=== PATIENT | female | born 1985 | race African-American/Black ===

== ENCOUNTER 2017-09-10 19:15 | Emergency (ER) | payer BC ==
[~2017-09-10] VITALS: Ht 170.2 cm; Wt 120.0 kg
[2017-09-10] MEDS ORDERED: LORAZEPAM 0.5MG TABLET PO ONE (21:30)
[2017-09-10 23:50] VITALS: BP 140/93
== END 2017-09-11 03:12 | disposition home or self-care (01) ==
LOC: ER 19:34
DX: F41.9 Anxiety disorder, unspecified (principal); R05 Cough; F32.9 Major depressive disorder, single episode, unspecified; K21.9 Gastro-esophageal reflux disease without esophagitis
CPT/HCPCS: 71045; 93005; 99284

== ENCOUNTER → 2024-05-07 | Outpatient (CLI) | payer BC | END | disposition home or self-care (01) | LOC: US 07:41 | PROVIDERS: ATTEND Obstetrics & Gynecology | DX: T83.32XA Displacement of intrauterine contraceptive device, initial encounter (principal); N85.8 Other specified noninflammatory disorders of uterus; X58.XXXA Exposure to other specified factors, initial encounter | CPT/HCPCS: 76830; 76856 ==

== ENCOUNTER → 2024-05-07 | Outpatient (CLI) | payer BC ==
[2024-05-07 09:40] LABS: CHLORIDE 108 mEq/L (98-107); POTASSIUM 3.7 mEq/L (3.5-5.1); SODIUM 139 mEq/L (136-145)
[2024-05-07 09:41] LABS: CALCIUM 9.2 mg/dL (8.7-10.4); CARBON DIOXIDE 25 mEq/L (21-32)
[2024-05-07 09:46] LABS: CREATININE 0.8 mg/dL (0.6-1.0); GLUCOSE 102 mg/dL (70-105)
[2024-05-07 09:47] LABS: LDL CHOLESTEROL 92 mg/dL (5-100); TRIGLYCERIDE 70 mg/dL (0-150); UREA NITROGEN BLOOD 12 mg/dL (9-23)
[2024-05-07 09:48] LABS: ALANINE AMINOTRANSFERASE 9 IU/L (10-49); ALBUMIN 4.2 g/dL (3.2-4.8); ASPARTATE AMINOTRANSFERASE 14 IU/L (<34); CHOLESTEROL 157 mg/dL (<200)
[2024-05-07 09:49] LABS: BILIRUBIN TOTAL 0.6 mg/dL (0.1-1.0); HDL CHOLESTEROL 48 mg/dL (>65); PROTEIN TOTAL 7.4 g/dL (6.0-8.3)
[2024-05-07 09:51] LABS: T4 FREE 1.18 ng/dL (0.89-1.76); THYROID STIMULATING HORMONE 1.15 uIU/mL (0.55-4.78)
== END | disposition home or self-care (01) ==
LOC: LAB 07:48
PROVIDERS: ATTEND Internal Medicine
DX: I10 Essential (primary) hypertension (principal); E03.9 Hypothyroidism, unspecified; D64.9 Anemia, unspecified; E11.9 Type 2 diabetes mellitus without complications; E55.9 Vitamin D deficiency, unspecified
CPT/HCPCS: 36415; 80053; 80061; 82306; 83036; 84439; 84443

== ENCOUNTER → 2024-12-03 | Outpatient (CLI) | payer BC | END | disposition home or self-care (01) | LOC: CARD 06:40 | PROVIDERS: ATTEND Internal Medicine | DX: I35.8 Other nonrheumatic aortic valve disorders (principal); R00.2 Palpitations; R07.9 Chest pain, unspecified | CPT/HCPCS: 93306 ==

== ENCOUNTER → 2024-12-14 | Outpatient (CLI) | payer BC ==
[2024-12-14 09:15] LABS: BASOPHILS % 0.8 % (0.0-2.0); EOSINOPHILS % 1.1 % (0.0-5.0); HEMATOCRIT. 35.0 % (36.0-48.0); HEMOGLOBIN. 11.8 g/dL (12.0-16.0); LYMPHOCYTES % 50.3 % (20.0-50.0); MEAN PLATELET VOLUME 7.6 fl (7.4-10.4); MONOCYTES % 8.4 % (2.0-8.0); NEUTROPHILS % 39.4 % (40.0-76.0); PLATELET 261 x1000/uL (130-400); RED BLOOD CELL COUNT 3.95 mill/uL (4.2-5.4); RED CELL DISTRIBUTION WIDTH 13.2 % (11.6-14.6)
[2024-12-14 09:32] LABS: CREATININE 1.0 mg/dL (0.6-1.0); TRIGLYCERIDE 50 mg/dL (0-150); UREA NITROGEN BLOOD 7 mg/dL (9-23)
[2024-12-14 09:33] LABS: LDL CHOLESTEROL 82 mg/dL (5-100)
[2024-12-14 09:34] LABS: ASPARTATE AMINOTRANSFERASE 16 IU/L (<34); BILIRUBIN TOTAL 0.9 mg/dL (0.1-1.0); PROTEIN TOTAL 7.3 g/dL (6.0-8.3)
[2024-12-14 09:35] LABS: T4 FREE 1.18 ng/dL (0.89-1.76)
[2024-12-14 09:38] LABS: VITAMIN B12 SERUM > 2000 pg/mL (211-911)
== END | disposition home or self-care (01) ==
LOC: CCL 05:07
PROVIDERS: ATTEND Internal Medicine
DX: I10 Essential (primary) hypertension (principal); E11.9 Type 2 diabetes mellitus without complications; E03.9 Hypothyroidism, unspecified; E78.5 Hyperlipidemia, unspecified; E55.9 Vitamin D deficiency, unspecified
CPT/HCPCS: 36415; 80053; 80061; 82306; 82607; 82962; 83036; 84439; 84443; 85025

== ENCOUNTER 2024-12-22 15:55 | Emergency (ER) | payer BC ==
[~2024-12-22] VITALS: Ht 170.2 cm; Wt 102.5 kg
[2024-12-22 16:18] VITALS: TEMP 36.8; O2SAT 97
[2024-12-22 22:40] VITALS: BP 140/85; PULSE 70; RESP 20; O2SAT 100
== END 2024-12-22 22:43 | disposition home or self-care (01) ==
LOC: ER 15:55
DX: S83.91XA Sprain of unspecified site of right knee, initial encounter (principal); F41.9 Anxiety disorder, unspecified; F32.A Depression, unspecified; Z98.890 Other specified postprocedural states; X50.9XXA Other and unspecified overexertion or strenuous movements or postures, initial encounter; Y93.89 Activity, other specified; Y92.89 Other specified places as the place of occurrence of the external cause; Y99.8 Other external cause status
CPT/HCPCS: 29505; 73562; 99283

== ENCOUNTER → 2025-01-24 | Outpatient (CLI) | payer BC ==
[~2025-01-24] MED LIST: IOHEXOL-350 100 ML BOTTLE ONE; METO-396 PO
== END | disposition home or self-care (01) ==
LOC: CT 06:11
PROVIDERS: ATTEND Internal Medicine
DX: Z13.6 Encounter for screening for cardiovascular disorders (principal); R00.2 Palpitations
CPT/HCPCS: 75571; Q9967

== ENCOUNTER → 2025-05-14 | Outpatient (CLI) | payer BC ==
[~2025-05-14] MED LIST changes: -IOHEXOL-350 100 ML BOTTLE ONE
[2025-05-14 08:15] LABS: BASOPHILS % 0.9 % (0.0-2.0); EOSINOPHILS % 1.5 % (0.0-5.0); HEMATOCRIT. 36.6 % (36.0-48.0); HEMOGLOBIN. 12.0 g/dL (12.0-16.0); LYMPHOCYTES % 40.2 % (20.0-50.0); MEAN PLATELET VOLUME 7.4 fl (7.4-10.4); MONOCYTES % 7.1 % (2.0-8.0); NEUTROPHILS % 50.3 % (40.0-76.0); PLATELET 273 x1000/uL (130-400); RED BLOOD CELL COUNT 4.09 mill/uL (4.2-5.4); RED CELL DISTRIBUTION WIDTH 13.8 % (11.6-14.6)
[2025-05-14 08:29] LABS: CREATININE 1.1 mg/dL (0.6-1.0); TRIGLYCERIDE 52 mg/dL (0-150); UREA NITROGEN BLOOD 12 mg/dL (9-23)
[2025-05-14 08:30] LABS: LDL CHOLESTEROL 84 mg/dL (5-100); PROTEIN TOTAL 7.5 g/dL (6.0-8.3)
[2025-05-14 08:31] LABS: ASPARTATE AMINOTRANSFERASE 15 IU/L (<34); BILIRUBIN TOTAL 1.0 mg/dL (0.1-1.0)
[2025-05-14 08:34] LABS: T4 FREE 1.36 ng/dL (0.89-1.76)
[2025-05-14 08:45] LABS: VITAMIN B12 SERUM 1085 pg/mL (211-911)
== END | disposition home or self-care (01) ==
LOC: LAB 05:08
PROVIDERS: ATTEND Internal Medicine
DX: I10 Essential (primary) hypertension (principal); E11.9 Type 2 diabetes mellitus without complications; E03.9 Hypothyroidism, unspecified; E78.5 Hyperlipidemia, unspecified; E53.9 Vitamin B deficiency, unspecified
CPT/HCPCS: 36415; 80053; 80061; 82607; 83036; 84439; 84443; 85025